=== PATIENT | female | born 1955 | race Caucasian/White ===

== ENCOUNTER → 2017-01-22 | Outpatient (CLI) | payer OTHER ==
[~2017-01-22] MED LIST: CELEXA40 MG PO; KEFLEX500 M1 PO; LISINOPRIL 10MG10 MG PO; LORTAB 5/500 501 TAB PO; RELAFEN750 MG PO
[2017-01-22 13:57] LABS: HEMOGLOBIN 15.1 g/dL (12.2-16.2); LYMPH # 1.7 K/mm3 (0.7-4.5); LYMPH % 20.6 % (10-50.0)
[2017-01-22 14:45] LABS: BUN 12 mg/dL (7-18); GFR (ESTIMATED) 73 ML/MIN (59-)
[2017-01-23 09:38] LABS: Vitamin D, 25-Hydroxy 19.5 ng/mL (30.0-100.0)
[2017-01-23 10:40] LABS: Creatinine, Urine 97.6 mg/dL (Not Estab.); Microalbumin, Urine 13.9 ug/mL (Not Estab.)
== END ==
LOC: LAB 13:22
PROVIDERS: Physician Assistant
DX: I10 Essential (primary) hypertension (principal); E11.9 Type 2 diabetes mellitus without complications; E55.9 Vitamin D deficiency, unspecified

== ENCOUNTER → 2017-02-14 | Outpatient (CLI) | payer OTHER ==
--- NOTE | 2017-02-19 10:44 | RADIOLOGY REPORT PS360 ---
DIG MAMM-SCREEN [facility] W/CAD CAD Screening ORDERING PHYSICIAN : CORAZON SMILEY PATIENT AGE: 61 years GENDER: Female COMPARISON: Previous mammograms: No previous available apparently prior 2001 mammogram studies been purged since greater than 10 years as Hospital protocol INDICATION: Routine screening no hormones. No new complaints. Previous excisional biopsy of 2 benign cyst of the right breast TECHNIQUE: Standard CC and MLO images were obtained. R2 CAD reviewed. FINDINGS: Scattered moderate fibroglandular elements bilateral with mild asymmetry. RIGHT BREAST:. Small intramammary lymph node deep upper outer quadrant right breast. Largest measuring 6.3 mm. . Other scattered areas of density appear to be merely glandular tissue follow-up in not over one year recommended on right .. LEFT BREAST: labeled X : Small well-defined nodular densities lateral left breast measuring 6 mm with adjacent smaller round density 3.5 mm. These most likely intramammary nodes given the fatty umbilication appearance. Labeled Y small density. 6:00 more central breast. Doubt of significance but would benefit from additional CC and MLO and 90 spot views views, or alternatively close 4-6 month follow-up for this most likely benign feature. IMPRESSION: ......... 1. Left Breast:. Small focal density labeled Y is most likely benign feature but would benefit from spot views ( & possibly ultrasound if persist.). A follow-up left mammogram in 4-6 months would be reasonable alternative for this and other most likely benign features left breast. 2. Right breast.: Follow-up in one year BI-RADS CATEGORY: 0_Incomplete: Need additional imaging. RECOMMENDED FOLLOWUP: ADD ADDITIONAL IMAGING (A letter has been sent to the patient regarding results of the study.)
== END ==
LOC: RT 02-07 14:00 → RAD 02-07 15:00 → RT 13:34
DX: R05 Cough (principal); Z12.31 Encounter for screening mammogram for malignant neoplasm of breast
CPT/HCPCS: G0202

== ENCOUNTER → 2017-02-26 | Outpatient (CLI) | payer OTHER ==
--- NOTE | 2017-03-06 15:53 | RADIOLOGY REPORT PS360 ---
DIG MAMM-DX UNI A/VWS-LT W/CAD , US BREAST-LT COMPLETE W/AXILLA Ordering Physician: Escobar Bingham MD Patient Age: 61 years Female COMPARISON: February 26, 2017 February 14, 2017 screening mammogram. On Mammograms prior to this a been purged per hospital protocol INDICATION: Density left breast now for further evaluation. TECHNIQUE: MLO cc 90 degrees and rolled cc spot views performed. DIAGNOSTIC LEFT MAMMOGRAM... Including Spot views Density labeled Y at central, inferior left breast is less evident on today's spot views at but does persist.. Less concerning and unlikely significance. Ultrasound however will be performed to further evaluate this region as well. The small round areas labeled X lateral left breast just beneath the skin are identified. Ultrasound pending Incidental area density at the medial breast seen on these initial cc view, further pursued & dissipates on additional rolled cc views of this region.. ULTRASOUND LEFT BREAST INCLUDING AXILLARY SURVEY Ultrasound survey entire left breast performed with axillary survey included . At 4:00. Note 2 small cystic areas.: The largest 3 mm size at 4 o'clock position; and a 2.3 mm adjacent cyst at 5 o'clock position.. -This thin elongated hypoechoic area likely debris-filled cyst measuring 6.7 mm. Both these areas with Benign appearance by ultrasound. The latter may correlate with the density seen on mammography.. Follow-up suggested. 8:00. Intermediate density likely collection of apocrine cysts or debris-filled cyst. 3.3 mm diameter. No shadowing. 10:00. Small less than 3 mm cyst. Debris-filled. Axillary. . No suspicious finding but there is a elongated node or combination of nodes of spanning nearly 4 cm length but only 9 mm AP IMPRESSION: ------ 1. Mammography decreases concern regarding prior small densities at area labeled Y. This area seems to dissipate.. However suggest follow-up left mammogram in 6 months for this and other small benign-appearing nodular densities 2. Small nodular densities at the lateral left breast are most likely related to small cysts, & debris-filled cyst, 3. Follow-up left mammogram 6 months suggested. BI-RADS CATEGORY: 3_Probably Benign-Short Term F/U RECOMMENDED FOLLOWUP: 6M 6MONTH FOLLOW-UP left mammogram (A letter has been sent to the patient regarding results of the study.)
== END ==
LOC: RAD 13:36
DX: R92.8 Other abnormal and inconclusive findings on diagnostic imaging of breast (principal)
CPT/HCPCS: G0206-LT

== ENCOUNTER 2017-03-13 07:09 | Day surgery (SDC) | payer OTHER ==
--- NOTE | 2017-03-13 08:09 | Operative Note ---
Endoscopy Report Date: 03/13/17 Preoperative diagnosis: Screening colonoscopy Procedure Type of procedure: Indications: Patient is a 61-year-old white female. She's never had prior colonoscopy. She does have somewhat of a family history. She's been asymptomatic. She was sent for initial screening colonoscopy. Consent was obtained and patient was taken to endoscopy procedure room. Adequate intravenous sedation was achieved with titration 8 mg Versed and 200 g fentanyl for the duration of the procedure. Variable stiffness Olympus colonoscope was inserted via the anus and advanced to the cecum without difficulty. Colonic operation was good. Ileocecal valve and appendiceal orifice were clearly identified. Colonoscope was advanced a short distance into the terminal ileum which was grossly normal. Colonoscope was withdrawn to the colon with careful surveillance. There were some sigmoid diverticuli. Retroflexion within the rectum revealed no evidence of any pathologic internal hemorrhoids. Colonoscope was withdrawn. Findings 1. Diverticulosis Follow-Up Follow-Up: Due to the fact that this was her initial screening colonoscopy and due to the family history I recommend repeat colonoscopy in 5 years unless otherwise indicated. at 0808
[2017-03-13 15:10] VITALS: BP 117/65
== END 2017-03-13 09:20 | disposition home or self-care (01) ==
LOC: SDC 07:09
PROVIDERS: Surgery
PROC: 0DJD8ZZ Inspection of Lower Intestinal Tract, Via Natural or Artificial Opening Endoscopic (ICD-10-PCS; principal; 2017-03-13 07:30)
DX: Z12.11 Encounter for screening for malignant neoplasm of colon (principal); K57.90 Diverticulosis of intestine, part unspecified, without perforation or abscess without bleeding